=== PATIENT | male | born 1955 | race Caucasian/White ===

== ENCOUNTER 2019-08-11 09:02 | Day surgery (SDC) | payer MEDICARE ==
[~2019-08-11 09:02] MED LIST: ALLEGRA ALLERG180 MG; Advair Hfa 230-12 GM; MOMENI; MONT4
--- NOTE | 2019-08-11 09:52 | NUR ---
PT HERE FOR CTA ANGIOGRAM. IV START AND MEDS PER ORDERS NEEDED.
--- NOTE | 2019-08-11 10:31 | NUR ---
Discharge instructions reviewed with patient. Patient verbalizes understanding. Copy given to patient to take home. Patient States Post-Procedure ride home has been arranged.
== END 2019-08-11 22:53 | disposition home or self-care (01) ==
LOC: ORD 09:02 → CT 09:02 → ORD 09:30 → CT 10:00 → ORD 22:53
DX: I25.10 Atherosclerotic heart disease of native coronary artery without angina pectoris (principal); I10 Essential (primary) hypertension; E78.5 Hyperlipidemia, unspecified; E66.9 Obesity, unspecified; G47.33 Obstructive sleep apnea (adult) (pediatric); J45.909 Unspecified asthma, uncomplicated; Z87.891 Personal history of nicotine dependence; Z88.8 Allergy status to other drugs, medicaments and biological substances; Z68.32 Body mass index [BMI] 32.0-32.9, adult; Z79.82 Long term (current) use of aspirin; Z79.899 Other long term (current) drug therapy
CPT/HCPCS: 75574; Q9967

== ENCOUNTER 2021-02-12 08:40 | Day surgery (SDC) | payer MEDICARE ==
[~2021-02-12] VITALS: Ht 172.7 cm; Wt 85.8 kg
== END 2021-02-12 10:14 | disposition home or self-care (01) ==
LOC: ORSCSDS 08:40
DX: Z12.11 Encounter for screening for malignant neoplasm of colon (principal); Z86.010 Personal history of colon polyps; D12.4 Benign neoplasm of descending colon; K62.1 Rectal polyp; K64.8 Other hemorrhoids; G47.30 Sleep apnea, unspecified; J45.909 Unspecified asthma, uncomplicated; I10 Essential (primary) hypertension; K57.30 Diverticulosis of large intestine without perforation or abscess without bleeding; Z79.82 Long term (current) use of aspirin; Z79.899 Other long term (current) drug therapy
CPT/HCPCS: 88305; J2704; J7120

== ENCOUNTER 2025-03-30 07:31 | Day surgery (SDC) | payer MEDICARE ==
[~2025-03-30] VITALS: Ht 172.7 cm; Wt 89.3 kg
[~2025-03-30 07:31] MED LIST changes: +Aspir 8181 MG PO; +OLME5TAB; +PRALUENT P75 MG/1 ML SQ
--- NOTE | 2025-03-30 08:39 | NUR ---
03/30/25 0839 [place] PT HAS A PHX OF CORONARY ARTERY DISEASE, LAST CARDIOLOGY VISIT 01/2023. ANESTHESIA REVIEW WITH DR. GREGORY. PT DENIED SHORTNESS OF BREATH, NO CHEST PAIN, WALKS UP FLIGHTS OF STAIRS WITHOUT SHORTNESS OF BREATH, PT BMI 29. DR. GREGORY OKAY TO PROCEED WITH PROCEDURE NURSE SEDATION. RN ENCOURAGED PT TO FOLLOW-UP WITH CARDIOLOGY POST PROCEDURE FOR 12 MONTH FOLLOW UP. MD TREJO.
[2025-03-30 09:56] VITALS: BP 123/68
== END 2025-03-30 09:59 | disposition home or self-care (01) ==
LOC: ORSCSDS 07:31
PROVIDERS: Internal Medicine Gastroenterology
PROC: 0DBH8ZX Excision of Cecum, Via Natural or Artificial Opening Endoscopic, Diagnostic (ICD-10-PCS; principal; 2025-03-30 09:15)
DX: Z12.11 Encounter for screening for malignant neoplasm of colon (principal); Z86.0100 Personal history of colon polyps, unspecified; D12.0 Benign neoplasm of cecum; K57.30 Diverticulosis of large intestine without perforation or abscess without bleeding; J45.909 Unspecified asthma, uncomplicated; G47.33 Obstructive sleep apnea (adult) (pediatric); I25.10 Atherosclerotic heart disease of native coronary artery without angina pectoris; I10 Essential (primary) hypertension; E78.5 Hyperlipidemia, unspecified; Z87.891 Personal history of nicotine dependence; Z79.82 Long term (current) use of aspirin; Z79.899 Other long term (current) drug therapy
CPT/HCPCS: 88305; J2704; J7120